=== PATIENT | male | born 1995 | race American Indian/Alaskan Native ===

== ENCOUNTER 2016-09-08 09:06 | Emergency (ER) | payer BC ==
[2016-09-08] MEDS ORDERED: ANTIVERT PO ONE (11:39)
[2016-09-08] MEDS ORDERED: NACL 0.9% 1000 ML 1,000 ML IV ONE (11:39)
[2016-09-08 12:11] LABS: Basophils % (Auto) 0.4 % (0.0-1.8); Eosinophils % (Auto) 0.3 % (0.0-4.3); Hematocrit 42.1 % (35.5-45.6); Hemoglobin 14.1 gm/dl (11.8-15.2); Mean Corpuscular HGB Conc 34 % (32-34); Mean Corpuscular Hemoglobin 31 pg (28-32); Mean Corpuscular Volume 93 fl (84-94); Platelet Count 192 K/mm3 (140-440); Red Blood Count 4.51 M/mm3 (3.65-5.03); Red Cell Distribution Width 13.5 % (13.2-15.2); White Blood Count 7.7 K/mm3 (4.5-11.0)
--- NOTE | 2016-09-08 12:11 | Cat Scan Report ---
CT HEAD WITHOUT CONTRAST: HISTORY: Lightheadedness, dizziness, syncope. Serial contiguous axial images were obtained through the cranium. Intravenous contrast material was not administered. The ventricles are normal in size and appearance. There is no mass effect or midline shift. No areas of abnormally increased or decreased attenuation are seen. No mass lesion is seen. The mastoid air cells and visualized portions of the sinuses are normal. IMPRESSION: Cranial CT scan within normal limits.
--- NOTE | 2016-09-08 12:17 | Emergency Department Report ---
ED Dizziness HPI - General Chief Complaint: Dizziness Stated Complaint: LIGHT HEADED/ FATIGUE/PASSED OUT Time Seen by Provider: 09/08/16 11:31 Source: patient Mode of arrival: Ambulatory Limitations: No Limitations - History of Present Illness Initial Comments: PT c/o feeling lightheaded since February. PT states he passed out in February and now he feels like he is going to pass out at least every other week. PT states he feels lightheaded daily and usually wakes up lightheaded. PT states his grandmother told him that he is anemic due to fatigue, feeling cold and dizziness. PT denies any hx of anemia. PT does report marijuana use and states sometimes that can exacerbate his symptoms but does not cause them. MD Complaint: dizziness, lightheadedness, near syncope Onset/Timin -: month(s) Timing: gradual onset Description: lightheadedness History of Same: Yes History of Trauma: No Severity: moderate Associated Symptoms: loss of appetite, syncope (x 1, 12-16). denies: chest pain , cough, fever/chills, malaise, shortness of breath, weakness - Related Data Previous Rx's Medication Instructions Recorded Last Taken Type Meclizine [Antivert] 25 mg PO TID PRN #20 tablet 09/08/16 Unknown Rx Allergies Allergy/AdvReac Type Severity Reaction Status Date / Time No Known Allergies Allergy Unverified 09/08/16 09:31 ED Review of Systems ROS: Stated complaint: LIGHT HEADED/ FATIGUE/PASSED OUT Other details as noted in HPI Comment: All other systems reviewed and negative ENT: denies: ear pain, throat pain Respiratory: shortness of breath. denies: SOB with exertion, SOB at rest Cardiovascular: syncope. denies: chest pain Endocrine: intolerance to cold Gastrointestinal: abdominal pain, nausea. denies: vomiting Neurological: denies: headache, weakness, numbness, vertigo ED Past Medical Hx - Past Medical History Previous Medical History?: No - Surgical History Past Surgical History?: No - Family History Family history: hypertension (mother ) - Social History Smoking Status: Current Every Day Smoker Substance Use Type: Alcohol, Marijuana - Medications Home Medications: Home Medications Medication Instructions Recorded Confirmed Last Taken Type Meclizine [Antivert] 25 mg PO TID PRN #20 tablet 09/08/16 Unknown Rx ED Physical Exam - General Limitations: No Limitations General appearance: alert, in no apparent distress - Head Head exam: Present: atraumatic, normocephalic, normal inspection - Eye Eye exam: Present: normal appearance, PERRL, EOMI. Absent: scleral icterus, conjunctival injection Pupils: Present: normal accommodation - ENT ENT exam: Present: normal exam, mucous membranes moist, TM's normal bilaterally , normal external ear exam - Neck Neck exam: Present: normal inspection. Absent: tenderness, full ROM, lymphadenopathy - Respiratory Respiratory exam: Present: normal lung sounds bilaterally. Absent: respiratory distress, chest wall tenderness - Cardiovascular Cardiovascular Exam: Present: regular rate, normal rhythm, normal heart sounds - GI/Abdominal GI/Abdominal exam: Present: soft, normal bowel sounds. Absent: tenderness, guarding, rebound - Extremities Exam Extremities exam: Present: normal inspection, full ROM. Absent: tenderness - Back Exam Back exam: Present: normal inspection, full ROM. Absent: tenderness, CVA tenderness (R), CVA tenderness (L), muscle spasm, paraspinal tenderness, vertebral tenderness - Neurological Exam Neurological exam: Present: alert, oriented X3, CN II-XII intact, normal gait - Expanded Neurological Exam Expanded Patient oriented to: Present: person, place, time Speech: Present: fluid speech Best Eye Response ([place]): (4) open spontaneously Best Motor Response ([place]): (6) obeys commands Best Verbal Response ([place]): (5) oriented [place] Total: 15 - Psychiatric Psychiatric exam: Present: normal affect, normal mood - Skin Skin exam: Present: warm, dry, intact, normal color ED Course Vital Signs 09/08/16 09/08/16 09:31 13:21 Temperature 98.6 F Pulse Rate 73 Pulse Rate [ 64 Lying] Pulse Rate [ 67 Sitting] Pulse Rate [ 63 Standing] Respiratory 20 Rate Blood Pressure 137/75 Blood Pressure 129/67 [Lying] Blood Pressure 131/62 [Sitting] Blood Pressure 134/64 [Standing] O2 Sat by Pulse 100 Oximetry - Reevaluation(s) Reevaluation #1: 09/08/16 12:21 PT aware or plan of care. Reevaluation #2: 09/08/16 14:55 Pt received 1 L NS and meclizen for symptoms, pt states he is feeling better. PT aware of lab results and CT results. PT has no questions at this time. - Pulse Oximetry Interpretation Digit-Finger Initial Pulse Oximetry Readin Actions Taken: none ED Medical Decision Making - Lab Data Result diagrams: 09/08/16 11:52 09/08/16 11:52 Laboratory Results - last 24 hr 09/08/16 09/08/16 09/08/16 11:52 11:52 11:52 WBC 7.7 RBC 4.51 Hgb 14.1 Hct 42.1 MCV 93 MCH 31 MCHC 34 RDW 13.5 Plt Count 192 Lymph % (Auto) 29.3 [place] % (Auto) 10.4 H Eos % (Auto) 0.3 Baso % (Auto) 0.4 Lymph # 2.3 [place] # 0.8 Eos # 0.0 Baso # 0.0 Seg Neutrophils % 59.6 Seg Neutrophils # 4.6 Sodium 142 Potassium 4.1 Chloride 101.4 Carbon Dioxide 29 Anion Gap 16 BUN 11 Creatinine 0.9 Estimated GFR > 60 BUN/Creatinine Ratio 12.22 Glucose 97 Calcium 9.5 Total Bilirubin 0.50 AST 32 ALT 27 Alkaline Phosphatase 72 Total Protein 7.4 Albumin 4.5 Albumin/Globulin Ratio 1.6 Lipase 39 TSH Free T4 Urine Color Urine Turbidity Urine pH Ur Specific [place] Urine Protein Urine Glucose (UA) Urine Ketones Urine Blood Urine Nitrite Urine Bilirubin Urine Urobilinogen Ur Leukocyte Esterase Urine WBC (Auto) Urine RBC (Auto) U Epithel Cells (Auto) Amorphous Crystals Urine Mucus Urine Opiates Screen Urine Methadone Screen Ur Barbiturates Screen Ur Phencyclidine Scrn Ur Amphetamines Screen U Benzodiazepines Scrn Urine Cocaine Screen U Marijuana (THC) Screen Drugs of Abuse Note 09/08/16 09/08/16 09/08/16 11:52 11:52 13:36 WBC RBC Hgb Hct MCV MCH MCHC RDW Plt Count Lymph % (Auto) [place] % (Auto) Eos % (Auto) Baso % (Auto) Lymph # [place] # Eos # Baso # Seg Neutrophils % Seg Neutrophils # Sodium Potassium Chloride Carbon Dioxide Anion Gap BUN Creatinine Estimated GFR BUN/Creatinine Ratio Glucose Calcium Total Bilirubin AST ALT Alkaline Phosphatase Total Protein Albumin Albumin/Globulin Ratio Lipase TSH 2.310 Free T4 1.10 Urine Color Yellow Urine Turbidity Cloudy Urine pH 7.0 Ur Specific [place] 1.024 Urine Protein 30 mg/dl Urine Glucose (UA) Neg Urine Ketones Neg Urine Blood Neg Urine Nitrite Neg Urine Bilirubin Neg Urine Urobilinogen 2.0 Ur Leukocyte Esterase Neg Urine WBC (Auto) 2.0 Urine RBC (Auto) 6.0 U Epithel Cells (Auto) < 1.0 Amorphous Crystals Few Urine Mucus 3+ Urine Opiates Screen Urine Methadone Screen Ur Barbiturates Screen Ur Phencyclidine Scrn Ur Amphetamines Screen U Benzodiazepines Scrn Urine Cocaine Screen U Marijuana (THC) Screen Drugs of Abuse Note 09/08/16 13:36 WBC RBC Hgb Hct MCV MCH MCHC RDW Plt Count Lymph % (Auto) [place] % (Auto) Eos % (Auto) Baso % (Auto) Lymph # [place] # Eos # Baso # Seg Neutrophils % Seg Neutrophils # Sodium Potassium Chloride Carbon Dioxide Anion Gap BUN Creatinine Estimated GFR BUN/Creatinine Ratio Glucose Calcium Total Bilirubin AST ALT Alkaline Phosphatase Total Protein Albumin Albumin/Globulin Ratio Lipase TSH Free T4 Urine Color Urine Turbidity Urine pH Ur Specific [place] Urine Protein Urine Glucose (UA) Urine Ketones Urine Blood Urine Nitrite Urine Bilirubin Urine Urobilinogen Ur Leukocyte Esterase Urine WBC (Auto) Urine RBC (Auto) U Epithel Cells (Auto) Amorphous Crystals Urine Mucus Urine Opiates Screen Presumptive negative Urine Methadone Screen Presumptive negative Ur Barbiturates Screen Presumptive negative Ur Phencyclidine Scrn Presumptive negative Ur Amphetamines Screen Presumptive negative U Benzodiazepines Scrn Presumptive negative Urine Cocaine Screen Presumptive negative U Marijuana (THC) Screen Presumptive positive Drugs of Abuse Note Disclamer - EKG Data -: EKG Interpreted by Me (Dr Berman ) EKG shows normal: sinus rhythm Rate: bradycardia (rate 51 ) - EKG Data When compared to previous EKG there are: previous EKG unavailable - Radiology Data Radiology results: report reviewed CT head - nap - Differential Diagnosis anemia, substance abuse, thyroid abnormality, arrhythmia, intracranial proc Critical Care Time: No Critical care attestation.: If time is entered above; I have spent that time in minutes in the direct care of this critically ill patient, excluding procedure time. ED Disposition Clinical Impression: Lightheadedness, Marijuana abuse Disposition: DC-01 TO HOME OR SELFCARE Is pt being admited?: No Does the pt Need Aspirin: No Condition: Stable Instructions: Near Syncope (ED), Lightheadedness (ED) Additional Instructions: Refrain from smoking marijuana No driving or Alcohol after taking Meclizine, Follow up with PCP in 3-5 days Return to the ED if worsening or new concerns Prescriptions: Meclizine [Antivert] 25 mg PO TID PRN #20 tablet PRN Reason: Vertigo Referrals: PRIMARY CAREMD [Primary Care Provider] - 3-5 Days KADIE HILL MD [Staff Physician] - 3-5 Days [facility] [Outside] - 3-5 Days Forms: Accompanied Note, Work/School Release Form(ED) Time of Disposition: 14:54
[2016-09-08 12:26] LABS: Alanine Aminotransferase 27 units/L (7-56); Albumin 4.5 g/dL (3.9-5); Albumin/Globulin Ratio 1.6 %; Alkaline Phosphatase 72 units/L (35-129); Anion Gap 16 mmol/L; BUN/Creatinine Ratio 12.22; Blood Urea Nitrogen 11 mg/dL (9-20); Calcium 9.5 mg/dL (8.4-10.2); Carbon Dioxide 29 mmol/L (22-30); Chloride 101.4 mmol/L (98-107); Glucose 97 mg/dL (75-100); Potassium 4.1 mmol/L (3.6-5.0); Sodium 142 mmol/L (137-145); Total Protein 7.4 g/dL (6.3-8.2)
[2016-09-08 13:24] VITALS: BP 134/64
[2016-09-08 13:58] LABS: Urine Drugs of Abuse Note Disclamer
[2016-09-08 14:11] LABS: Bilirubin,Urine NEG (Negative); Blood,Urine NEG (Negative); Ketones,Urine NEG (Negative); Leukocyte Esterase,Urine NEG (Negative); Mucus,Urine 3+ /HPF; Nitrite,Urine NEG (Negative)
== END 2016-09-08 15:07 | disposition home or self-care (01) ==
LOC: ED 09:06
DX: R42 Dizziness and giddiness (principal); F12.10 Cannabis abuse, uncomplicated; F17.210 Nicotine dependence, cigarettes, uncomplicated
CPT/HCPCS: 36415; 70450; 80053; 80307; 81001; 83690; 84439; 84443; 85025; 93005; 93010; 96360; 99284; J7030

== ENCOUNTER 2016-11-28 01:54 | Emergency (ER) | payer BC ==
[2016-11-28 03:43] VITALS: BP 115/68
[2016-11-28] MEDS ORDERED: MOTRIN PO ONE (03:52)
[2016-11-28] MEDS ORDERED: TYLENOL PO ONE (03:52)
--- NOTE | 2016-11-28 03:56 | Emergency Department Report ---
ED General Adult HPI - General Chief complaint: Back Pain/Injury Stated complaint: LOWER BACK PAIN Time Seen by Provider: 11/28/16 03:39 Source: patient, RN notes reviewed Mode of arrival: Ambulatory Limitations: No Limitations - History of Present Illness Initial comments: This is a 21-year-old male, he is previously unknown to me, he presents to the ER with left lower back pain. The pain is sharp, it increases with range of motion, it decreases with rest. It does not radiate anywhere. No other complaints. No weakness, numbness, incontinence, no testicular pain. No IV drug use. No saddle anesthesia. -: Gradual Location: back Severity scale (0 -10): 0 Quality: aching Consistency: intermittent Improves with: none Worsens with: none Associated Symptoms: denies other symptoms - Related Data Previous Rx's Medication Instructions Recorded Last Taken Type Meclizine [Antivert] 25 mg PO TID PRN #20 tablet 09/08/16 Unknown Rx Acetaminophen [Tylenol Arthritis] 650 mg PO Q6HR PRN #30 tablet.er 11/28/16 Unknown Rx Ibuprofen [Motrin] 400 mg PO Q6HR PRN #30 tablet 11/28/16 Unknown Rx Allergies Allergy/AdvReac Type Severity Reaction Status Date / Time No Known Allergies Allergy Unverified 09/08/16 09:31 ED Review of Systems ROS: Stated complaint: LOWER BACK PAIN Other details as noted in HPI Constitutional: denies: fever Eyes: denies: eye discharge ENT: denies: epistaxis Respiratory: denies: cough Cardiovascular: denies: chest pain Gastrointestinal: denies: abdominal pain Genitourinary: denies: dysuria Musculoskeletal: back pain Skin: denies: lesions Neurological: denies: headache, weakness ED Past Medical Hx - Past Medical History Previous Medical History?: No - Surgical History Past Surgical History?: No - Social History Smoking Status: Current Every Day Smoker Substance Use Type: None - Medications Home Medications: Home Medications Medication Instructions Recorded Confirmed Last Taken Type Meclizine [Antivert] 25 mg PO TID PRN #20 tablet 09/08/16 Unknown Rx Acetaminophen [Tylenol Arthritis] 650 mg PO Q6HR PRN #30 tablet.er 11/28/16 Unknown Rx Ibuprofen [Motrin] 400 mg PO Q6HR PRN #30 tablet 11/28/16 Unknown Rx ED Physical Exam - General Limitations: No Limitations General appearance: alert, in no apparent distress - Head Head exam: Present: atraumatic, normocephalic - Eye Eye exam: Present: normal appearance, EOMI. Absent: nystagmus - ENT ENT exam: Present: normal exam, normal orophraynx, mucous membranes moist, normal external ear exam - Neck Neck exam: Present: normal inspection, full ROM. Absent: tenderness, meningismus - Respiratory Respiratory exam: Present: normal lung sounds bilaterally. Absent: respiratory distress, wheezes, rales, rhonchi, stridor, chest wall tenderness, accessory muscle use, decreased breath sounds, prolonged expiratory - Cardiovascular Cardiovascular Exam: Present: regular rate, normal rhythm, normal heart sounds. Absent: bradycardia, tachycardia, irregular rhythm, systolic murmur, diastolic murmur, rubs, gallop - GI/Abdominal GI/Abdominal exam: Present: soft, normal bowel sounds. Absent: distended, tenderness, guarding, rebound, rigid, pulsatile mass - Rectal Rectal exam: Present: deferred - Extremities Exam Extremities exam: Present: normal inspection, full ROM, normal capillary refill. Absent: pedal edema, joint swelling, calf tenderness - Back Exam Back exam: Present: normal inspection, full ROM. Absent: tenderness, CVA tenderness (R), CVA tenderness (L), muscle spasm, paraspinal tenderness, vertebral tenderness - Neurological Exam Neurological exam: Present: alert, oriented X3, normal gait, other (Extraocular movements intact. Tongue midline. No facial droop. Facial sensation intact to light touch in the V1, V2, V3 distribution bilaterally. 5 and 5 strength in 4 extremities.. Sensation is intact to light touch in 4 extremities.). Absent : motor sensory deficit - Psychiatric Psychiatric exam: Present: normal affect, normal mood - Skin Skin exam: Present: warm, dry, intact, normal color. Absent: rash ED Course Vital Signs 11/28/16 11/28/16 02:16 03:42 Temperature 98.6 F 98 F Pulse Rate 60 80 Respiratory 18 18 Rate Blood Pressure 114/59 Blood Pressure 115/68 [Left] O2 Sat by Pulse 99 96 Oximetry ED Medical Decision Making - Lab Data Vital Signs 11/28/16 11/28/16 02:16 03:42 Temperature 98.6 F 98 F Pulse Rate 60 80 Respiratory 18 18 Rate Blood Pressure 114/59 Blood Pressure 115/68 [Left] O2 Sat by Pulse 99 96 Oximetry - Medical Decision Making Differential diagnosis: Mechanical back pain, sprain, strain Assessment and plan: 21-year-old male with left lower posterior back pain, he is afebrile, with reassuring vital signs, walks with a steady gait, has a normal neurologic examination, history and physical exam do not support or corroborate diagnosis of serious etiology, such as epidural compression syndrome , or epidural abscess. He is afebrile, with reassuring vital signs, walks with a steady gait, he will managed expectantly with nonnarcotic medications. Critical care attestation.: If time is entered above; I have spent that time in minutes in the direct care of this critically ill patient, excluding procedure time. ED Disposition Clinical Impression: Back pain Disposition: - TO HOME OR SELFCARE Is pt being admited?: No Does the pt Need Aspirin: No Condition: Stable Instructions: Low Back Strain (ED) Additional Instructions: Rest and avoid heavy lifting, avoid strenuous physical activity, take the pain medication as directed, return to the ER right away with fevers, chills, lethargy, irritability, projectile vomiting, change in mental status, inability to tolerate liquid feeds. Prescriptions: Acetaminophen [Tylenol Arthritis] 650 mg PO Q6HR PRN #30 tablet.er PRN Reason: Pain Ibuprofen [Motrin] 400 mg PO Q6HR PRN #30 tablet PRN Reason: Pain Referrals: PRIMARY CAREMD [Primary Care Provider] - 3-5 Days MARAL BENDER MD [Staff Physician] - 3-5 Days Forms: Work/School Release Form(ED)
== END 2016-11-28 04:52 | disposition home or self-care (01) ==
LOC: ED 01:54
DX: M54.5 Low back pain (principal); F17.210 Nicotine dependence, cigarettes, uncomplicated
CPT/HCPCS: 99282

== ENCOUNTER 2016-12-26 11:51 | Emergency (ER) | payer BC ==
[2016-12-26 11:56] VITALS: BP 117/60
--- NOTE | 2016-12-26 15:16 | Emergency Department Report ---
[place] [facility] Chief Complaint: Eye Problems Stated Complaint: LEFT EYE PINK Time Seen by Provider: 12/26/16 14:56 Duration: 5 Days Side: Left Severity: mild Symptoms: Yes Eye Itching, Yes Eye Redness, Yes Eye Pain, Yes Mucous Drainage, Yes Purulent Drainage, No Blurred Vision, No Preceding URI, No H/O Allergic Rhinitis, No Contact Lens Use, No Trauma, No Fever, No Headache ED Review of Systems ROS: Stated complaint: LEFT EYE PINK Other details as noted in HPI Constitutional: denies: chills, fever Eyes: eye pain, eye discharge. denies: vision change ENT: denies: ear pain, throat pain Respiratory: denies: cough, shortness of breath, wheezing Cardiovascular: denies: chest pain, palpitations Endocrine: no symptoms reported Gastrointestinal: denies: abdominal pain, nausea, diarrhea Genitourinary: denies: urgency, dysuria Musculoskeletal: denies: back pain, joint swelling, arthralgia Skin: denies: rash, lesions Neurological: denies: headache, weakness, paresthesias Psychiatric: denies: anxiety, depression Hematological/Lymphatic: denies: easy bleeding, easy bruising ED Past Medical Hx - Past Medical History Previous Medical History?: No - Surgical History Past Surgical History?: No - Social History Smoking Status: Current Every Day Smoker Substance Use Type: None - Medications Home Medications: Home Medications Medication Instructions Recorded Confirmed Last Taken Type Meclizine [Antivert] 25 mg PO TID PRN #20 tablet 09/08/16 Unknown Rx Acetaminophen [Tylenol Arthritis] 650 mg PO Q6HR PRN #30 tablet.er 11/28/16 Unknown Rx Ibuprofen [Motrin] 400 mg PO Q6HR PRN #30 tablet 11/28/16 Unknown Rx Cetirizine HCl [ZyrTEC] 10 mg PO DAILY #30 tab.rapdis 12/26/16 Unknown Rx Ibuprofen 800 mg PO TID #30 tablet 12/26/16 Unknown Rx Polymyxin B Sulf/Trimethoprim 1 drop OS QID #1 bottle 12/26/16 Unknown Rx [Polytrim Eye Drops] [place] [facility] Exam - Exam General: Vital signs noted. No distress. Alert and acting appropriately. Eye Exam: Left Injection, Left Mucous Discharge, Left Purulent Discharge, Left Photophobia, Both EOMI, Neither Eye Foreign Body, Neither Lid Foreign Body HEENT: No Nasal Congestion, No Pharyngeal Erythema Remainder of HEENT: Normal Lungs: Yes Clear Lung Sounds, Yes Good Air Exchange, No Wheezes, No Stridor, No Cough, No Nasal Flaring, No Retractions, No Use of Accessory Muscles ED Course Vital Signs 12/26/16 11:54 Temperature 98.0 F Pulse Rate 87 Respiratory 18 Rate Blood Pressure 117/60 O2 Sat by Pulse 99 Oximetry ED Medical Decision Making - Medical Decision Making pt is a 21 y/o aam who presents for pink eye left x 5 days pt endorses " My girl adria has pink eye and I slept on her pillow and now my eye has be draining x 5 says and she is out of eye drops" there is no fever no chills no change in vision eye vital signs: perrla at 3mm bilat, eomi bilat, conjunctivae erythema yellow purulent discharge left , visual acuity 20/20 bilat , IOP: 11mmg/hg there is no foreign body no pain to palpation globe in intact , pt states strong rationale for conjunctivitis, will treat for same polytrim eye drops, zyrtec , ibuprofen, pt will follow up with ophthalmology in 2 days pt verbalized agreement and understanding of discharge plan. Critical care attestation.: If time is entered above; I have spent that time in minutes in the direct care of this critically ill patient, excluding procedure time. ED Disposition Clinical Impression: Conjunctivitis Qualifiers: Conjunctivitis type: acute Acute conjunctivitis type: bacterial Laterality: left Qualified Code(s): H10.32 - Unspecified acute conjunctivitis, left eye Disposition: DC-01 TO HOME OR SELFCARE Is pt being admited?: No Does the pt Need Aspirin: No Condition: Good Instructions: Conjunctivitis (ED) Additional Instructions: follow up with [facility] [place] in 2 days [phone] Prescriptions: Cetirizine HCl [ZyrTEC] 10 mg PO DAILY #30 tab.rapdis Ibuprofen 800 mg PO TID #30 tablet Polymyxin B Sulf/Trimethoprim [Polytrim Eye Drops] 1 drop OS QID #1 bottle Referrals: PRIMARY CARE, [Primary Care Provider] - 3-5 Days Forms: Work/School Release Form(ED) Time of Disposition: 15:37
== END 2016-12-26 16:04 | disposition home or self-care (01) ==
LOC: ED 11:51
DX: H10.32 Unspecified acute conjunctivitis, left eye (principal); F17.200 Nicotine dependence, unspecified, uncomplicated
CPT/HCPCS: 99282